=== PATIENT | female | born 1970 | race Caucasian/White ===

== ENCOUNTER 2016-06-01 18:10 | Emergency (ER) | payer OTHER ==
[~2016-06-01] VITALS: Ht 160 cm; Wt 153.8 kg
[~2016-06-01 18:10] MED LIST: BENAZEPRIL20 MG PO; COL100 PO; ERYOO OS; GLU500 PO; LORAZEPAM0.5; LOT20 PO; MOT800; MOTRIN800 MG PO; NOR10; NOR10 PO; NOR10T PO; OMEPRAZOLE DR20 M1 PO; PRI20; WELLBUTRIN SR150 M
[2016-06-02 00:50] LABS: CALCIUM 8.7 mg/dL (8.5-10.1); CARBON DIOXIDE 23.8 mmol/L (21-32); CHLORIDE SERUM 103 mmol/L (98-107); CREATININE SERUM 0.7 mg/dL (0.6-1.0); GFR1 > 60 mL/min; GLUCOSE SERUM 112 mg/dL (74-106); POTASSIUM SERUM 3.4 mmol/L (3.5-5.1); SODIUM SERUM 137 mmol/L (136-145)
[2016-06-02 00:58] LABS: BASOPHIL % 0.4 % (0-2); PLATELET COUNT 241 x10^3mcL (130-400)
[2016-06-02 01:01] LABS: RED CELL DISTRIBUTION WIDTH 16.8 % (11.5-14.5)
[2016-06-02 01:04] LABS: T3 TOTAL 1.8 ng/mL
[2016-06-02 01:17] LABS: ALBUMIN 3.4 g/dL (3.4-5.0); ALKALINE PHOSPHATASE 62 U/L (46-116); ALT/SGPT 57 U/L (14-59); AST/SGOT 50 U/L (15-37); BILIRUBIN TOTAL 0.25 mg/dL (0.20-1.00); C REACTIVE PROTEIN 1.6 mg/dL (<=0.9); TOTAL PROTEIN, SERUM 8.1 g/dL (6.4-8.2)
[2016-06-02 01:18] LABS: CK-MB < 0.5 ng/mL (0-3.6); CREATINE KINASE 82 U/L (26-192)
[2016-06-02 01:21] LABS: UA SPECIFIC GRAVITY >=1.030 (1.005-1.035); microscopic required? YES; urine erythrocyte 1+ (NEGATIVE)
[2016-06-02 01:29] LABS: FREE T4 1.19 ng/dL (0.76-1.46); FREE THYROXINE INDEX 3.2 ug/dL (1.4-4.5); T4(THYROXINE) 12.2 ug/dL (4.7-13.3)
[2016-06-02 02:45] LABS: ERYTHROCYTE SED RATE 34 mm/hr (0-20)
[2016-06-02 02:52] VITALS: BP 149/83
== END 2016-06-02 02:52 | disposition home or self-care (01) ==
LOC: ED 18:10
PROVIDERS: Specialist
DX: R10.9 Unspecified abdominal pain (principal); R19.7 Diarrhea, unspecified; I10 Essential (primary) hypertension; E11.9 Type 2 diabetes mellitus without complications; E66.01 Morbid (severe) obesity due to excess calories
CPT/HCPCS: 83880; 84439; J1885; J2405; J3010; J7030